=== PATIENT | male | born 1955 | race Caucasian/White ===

== ENCOUNTER 2018-03-29 10:52 | Emergency (ER) | payer BC ==
[2018-03-29] MEDS: CYCLOBENZAPRINE 10 MG TAB PO (12:19)
[2018-03-29] MEDS: predniSONE 20 MG TAB PO (12:19)
== END 2018-03-29 12:24 | disposition home or self-care (01) ==
LOC: M ED 10:52
DX: M54.42 Lumbago with sciatica, left side (principal); E11.9 Type 2 diabetes mellitus without complications; I10 Essential (primary) hypertension; M48.00 Spinal stenosis, site unspecified; Z79.899 Other long term (current) drug therapy; Z79.84 Long term (current) use of oral hypoglycemic drugs
CPT/HCPCS: 99283

== ENCOUNTER → 2023-07-27 | Outpatient (CLI) | payer BC, MEDICARE, OTHER ==
[~2023-07-27] MED LIST: ASPI-1 PO; ATOR1TAB19 PO; AUGM875T28 PO; CYCL-707 PO; IBUP200C25 PO; KETO10TAB PO; LISI10TA22 PO; LORT5TAB PO; METF500T13 PO; PRED20TA PO; SERT25TA85 PO
== END ==
LOC: M RAD 09:13
PROVIDERS: ATTEND Internal Medicine Critical Care Medicine
DX: R91.8 Other nonspecific abnormal finding of lung field (principal)

== ENCOUNTER 2024-05-14 05:39 | Emergency (ER) | payer MEDICARE, OTHER ==
[~2024-05-14] VITALS: Ht 193 cm; Wt 88.2 kg
[2024-05-14 06:51] LABS: ALBUMIN 3.5 G/DL (3.2-5.2); ALKALINE PHOSPHATASE 59 U/L (40-129); ALT/SGPT 31 U/L (7.0-40); AST/SGOT 41 U/L (<34); BILIRUBIN,DIRECT 0.2 MG/DL (<0.4); BLOOD UREA NITROGEN 13 MG/DL (9-23); CALCIUM LEVEL 8.8 MG/DL (8.3-10.6); CARBON DIOXIDE LEVEL 24 MMOL/L (20-31); CHLORIDE LEVEL 103 MMOL/L (98-107); CREATININE FOR GFR 0.78 MG/DL (0.70-1.30); GLOMERULAR FILTRATION RATE > 60.0 (>49); GLUCOSE, FASTING 166 MG/DL (74-106); LIPASE 28 U/L (12-53); POTASSIUM SERUM 4.7 MMOL/L (3.5-5.1); SODIUM LEVEL 138 MMOL/L (136-145); TOTAL PROTEIN 6.8 G/DL (5.7-8.2)
[2024-05-14 07:06] LABS: BASO # 0.1 10^3/uL (0.0-0.2); BASO % 0.4 % (0.0-1.0); EOS # 0.1 10^3/uL (0.0-0.5); HEMATOCRIT 42.7 % (42.0-52.0); HEMOGLOBIN 14.5 g/dl (13.5-17.5); LYMPH % 14.7 % (24.0-44.0); MEAN CORPUSCULAR HEMOGLOBIN 30.9 pg (27.0-33.0); MEAN CORPUSCULAR VOLUME 90.9 fl (80.0-96.0); MONO # 1.2 10^3/uL (0.0-0.8); MONO % 8.9 % (2.0-8.0); NEUTROPHILS % 74.7 % (36.0-66.0); PLATELET COUNT, AUTOMATED 182 10^3/uL (150-450); WHITE BLOOD COUNT 13.4 10^3/uL (4.0-10.0)
[2024-05-14] MEDS ORDERED: ISOVUE-370 76% 100ML VIAL As Ordered ONE (07:41)
[2024-05-14] MEDS ORDERED: METR-265 PO (09:54)
[2024-05-14] MEDS ORDERED: CIPR-249 PO (09:54)
[2024-05-14 10:00] VITALS: O2SAT 97
[2024-05-14 10:09] VITALS: BP 146/75; TEMP 96.8
== END 2024-05-14 10:52 | disposition home or self-care (01) ==
LOC: M ED 05:39
DX: K52.9 Noninfective gastroenteritis and colitis, unspecified (principal); R91.1 Solitary pulmonary nodule; R19.5 Other fecal abnormalities; E11.9 Type 2 diabetes mellitus without complications; I10 Essential (primary) hypertension; K57.30 Diverticulosis of large intestine without perforation or abscess without bleeding; Z79.02 Long term (current) use of antithrombotics/antiplatelets; Z79.4 Long term (current) use of insulin; Z79.52 Long term (current) use of systemic steroids; Z79.899 Other long term (current) drug therapy
CPT/HCPCS: 36415; 74174; 80048; 80076; 83605; 83690; 85025; 99284; Q9967